=== PATIENT | male | born 1970 | race African-American/Black ===

== ENCOUNTER 2017-02-12 11:30 | Outpatient (CLI) | payer MEDICAID, OTHER ==
[2017-02-12 12:35] LABS: Anion Gap 14 mmol/L (10-20); BUN (Urea Nitrogen) 14 mg/dL (8.9-20.6); Calc. Creatinine Clearance 0 mL/min (70-130); Carbon Dioxide 24 mmol/L (22-29); Chloride 101 mmol/L (98-107); Estimated GFR-MDRD 55; Glucose 392 mg/dL (70-105); Potassium 4.3 mmol/L (3.5-5.1); Sodium 135 mmol/L (136-145)
[2017-02-12 18:51] LABS: Creatinine, Urine 86.36 mg/dL (63-166)
[2017-02-12 18:53] LABS: Microalbumin Urine 48.8 mg/dL (0.5-50.0); Microalbumin/Creat Ratio 565.1 mg/g (Less than 30)
== END 2017-02-12 11:31 | disposition home or self-care (01) ==
LOC: HPCALD 11:30
PROVIDERS: ATTEND Family Medicine
DX: E11.65 Type 2 diabetes mellitus with hyperglycemia (principal); E11.22 Type 2 diabetes mellitus with diabetic chronic kidney disease; N18.3 Chronic kidney disease, stage 3 (moderate)
CPT/HCPCS: 36415; 80048; 82043

== ENCOUNTER 2017-02-12 11:42 | Outpatient (CLI) | payer MEDICAID ==
--- NOTE | 2017-02-12 18:30 | ULT ---
BILATERAL RENAL ULTRASOUND: 02/12/[address] report dated 01/30/17 done at [facility] was obtained. Today's exam scanned the kidneys f or evaluation of a possible mass in the inferior right kidney. Right kidney measures 12.0 x 6.2 x 6.0 cm. I could not appreciate any mass, hydronephrosis, or other abnormality in this kidney. The cortex was normal in thickness and normal in echogenicity. The left kidney was 12.4 cm x 4.9 x 5.0 cm. It appeared normal as well. The bladder wall thickness was 3 mm which is probably normal considering it was not overly distended. IMPRESSION: Today's ultrasound fails to show any definite right renal mass. POS: HOME
== END 2017-02-12 11:43 | disposition home or self-care (01) ==
LOC: BURULT 11:42
PROVIDERS: ATTEND Family Medicine
DX: N28.89 Other specified disorders of kidney and ureter (principal)
CPT/HCPCS: 36415; 76770; 80048; 82043